=== PATIENT | male | born 1985 | race Caucasian/White ===

== ENCOUNTER 2020-01-07 22:39 | Emergency (ER) | payer OTHER ==
[~2020-01-07] VITALS: Ht 188 cm; Wt 68.0 kg
[2020-01-07 22:46] VITALS: BP 118/81
--- NOTE | 2020-01-07 22:46 | NUR ---
ED Nurse Note: Walk-in patient with complaints of feeling like throat is closing up and difficulty breathing. ERMD at bedside.
[2020-01-07] MEDS ORDERED: AUGMENTIN 875-1 EAC1 ORAL (23:11)
--- NOTE | 2020-01-07 23:12 | Emergency Room Report ---
History of Present Illness General Chief Complaint: Sore Throat Source: Patient Present Illness HPI This a 34-year-old male with a history of insulin-dependent diabetes. He presents with complaint of sore throat. Onset in the last couple of hours. He said is very painful. He lost his voice. He also felt like throat was swollen and he could not breathe very well. Denies any fever chills but denies any nausea vomiting. Pain is 9 out of 10. Worse with swallowing. Nothing made it better. Allergies: Coded Allergies: No Known Allergies (Unverified , 01/07/20) Patient History Past Medical History: see triage record, old chart reviewed, DM Past Surgical History: other Pertinent Family History: none Social History: Denies: smoking Immunizations: other Reviewed Nursing Documentation: PMH: Agreed; PSxH: Agreed Nursing Documentation-PMH Hx Diabetes: Yes Review of Systems Eye: Denies: eye pain, blurred vision ENT: Reports: throat pain, throat swelling; Denies: ear pain, nose congestion Respiratory: Denies: cough, shortness of breath Cardiovascular: Denies: chest pain, palpitations Gastrointestinal: Denies: abdominal pain, diarrhea, nausea, vomiting Musculoskeletal: Denies: back pain, joint pain Skin: Denies: rash Neurological: Denies: headache, numbness Endocrine: Denies: increased thirst, increased urine Hematologic/Lymphatic: Denies: easy bruising All Other Systems: negative except mentioned in HPI Physical Exam Vital Signs Date Time Temp Pulse Resp B/P (MAP) Pulse Ox O2 Delivery O2 Flow Rate FiO2 01/07/20 22:46 98.4 88 16 118/81 (93) 94 Room Air Vitals normal Sp02 EP Interpretation: reviewed, normal General Appearance: well appearing, no apparent distress, alert Head: normocephalic, atraumatic Eyes: bilateral eye PERRL, bilateral eye EOMI ENT: hearing grossly normal, normal pharynx, uvula midline - Edematous and elongated, pharyngeal erythema Neck: full range of motion, supple, no meningismus Respiratory: chest non-tender, lungs clear, normal breath sounds Cardiovascular #1: regular rate, rhythm, no murmur Gastrointestinal: normal bowel sounds, non tender, no mass, no organomegaly, no bruit, non-distended Musculoskeletal: back normal, normal range of motion, gait/station normal Psychiatric: mood/affect normal Medical Decision Making Diagnostic Impression: Primary Impression: Pharyngitis, acute Qualified Codes: J02.9 - Acute pharyngitis, unspecified ER Course Patient with acute pharyngitis. Most likely viral in nature. Going put him on antibiotics since he has no other viral symptoms. He has no fever however. No evidence of peritonsillar abscess, retropharyngeal abscess or Gerard angina. No evidence of airway compromise. No stridor. Last Vital Signs Date Time Temp Pulse Resp B/P (MAP) Pulse Ox O2 Delivery O2 Flow Rate FiO2 01/07/20 22:46 98.4 88 16 118/81 (93) 94 Room Air Status: improved Disposition: HOME, SELF-CARE Condition: Stable Scripts Amoxicillin/Potassium Clav 875-125* (AUGMENTIN 875-125 TABLET*) 1 Each Tablet 1 TAB ORAL TWICE A DAY, #14 TAB Prov: Clay Diana MD 01/07/20 Referrals: NON PHYSICIAN (PCP) Patient Instructions: Laryngitis Additional Instructions: Increase fluids. Salt water gargle. May take Motrin/ibuprofen for pain. Follow-up with your doctor in 7 days. Return if symptoms worsen. Clay Diana MD Jan 07, 2020 23:11
[2020-01-07] MEDS ORDERED: Augmentin 875mg Tab ORAL ONE (23:15)
[2020-01-07 23:18] VITALS: BP 118/81
--- NOTE | 2020-01-07 23:18 | NUR ---
ER DISCHARGE NOTE: Patient is cleared to be discharged per PAOLO,miguelito tolerated medication administration well after crushing antibiotic pill. pt is aox4, on room air, with stable vital signs. pt was given dc and prescription instructions, pt was able to verbalize understanding, pt id removed without complications. pt is able to ambulate with steady gait. pt took all belongings.
== END 2020-01-07 23:18 | disposition home or self-care (01) ==
LOC: EMR 23:03
DX: J02.9 Acute pharyngitis, unspecified (principal); E11.9 Type 2 diabetes mellitus without complications
CPT/HCPCS: 99282; J7512